=== PATIENT | female | born 1985 | race Caucasian/White ===

== ENCOUNTER 2016-11-01 10:51 | Emergency (ER) | payer OTHER ==
[2016-11-01 10:59] VITALS: BP 162/88; PULSE 98; TEMP 97.9; BMI 44.9
--- NOTE | 2016-11-01 11:58 | PDOC ---
History of Present Illness - General History Source: Patient Exam Limitations: No Limitations - History of Present Illness Initial Comments: 11/01/16 12:18 The patient is a 31 year old female with no significant past medical history who presents to the emergency department with an abscess on the right side of her neck for the last week. The patient states the she has had a bump on her neck for at least a year, however within the last week she noticed increasing size and pain in her neck. She states that the abscess blew up within the last week. She reports sharp pain with movements of her neck and when lying down. The patient denies any radiating pain. The abscess is painful to touch. She went to urgent care a few days ago and was sent for an ultrasound. The ultrasound was inconclusive and required a CT scan for further evaluation. The patient denies any recent dental work. The patient denies any difficulty swallowing or SOB. She denies any recent illness, fevers, or chills. <Marilin Hunt - Last Filed: 11/01/16 12:18> <Chepe Benitez - Last Filed: 11/01/16 15:40> - General Chief Complaint: Abscess Boil Stated Complaint: ABSCESS/ RT SIDE OF NECK Time Seen by Provider: 11/01/16 11:36 Past History <Marilin Hunt - Last Filed: 11/01/16 12:18> - Past Medical History Psychiatric Problems: Yes (ANXIETY) Suicide Attempt (Hx): No Other medical history: gullian barre - Surgical History Cholecystectomy: Yes - Reproductive History (#): 0 Para: 0 - Immunization History Td Vaccination: Yes Immunization Up to Date: Yes - Psycho/Social/Smoking Cessation Hx Anxiety: Yes Suicidal Ideation: No Smoking Status: No Smoking History: Never smoked Years of Tobacco Use: 0 Have you smoked in the past 12 months: No Number of Cigarettes Smoked Daily: 0 Cigars Per Day: 0 Information on smoking cessation initiated: No Hx Alcohol Use: No Drug/Substance Use Hx: No Substance Use Type: None <Chepe Benitez - Last Filed: 11/01/16 15:40> - Past Medical History Allergies/Adverse Reactions: Allergies Allergy/AdvReac Type Severity Reaction Status Date / Time clindamycin HCl Allergy Swelling Verified 11/01/16 10:52 [From Cleocin] clindamycin palmitate HCl Allergy Swelling Verified 11/01/16 10:52 [From Cleocin] clindamycin phosphate Allergy Swelling Verified 11/01/16 10:52 [From Cleocin] Home Medications: Ambulatory Orders Clonazepam [KlonoPIN] 1 mg PO BID PRN 05/22/15 Ibuprofen Oral Suspension [Motrin Oral Suspension -] 600 mg PO Q6H PRN #1 bottle 05/22/15 Ondansetron [Ondansetron Odt] 8 mg PO TID #20 tab.rapdis 11/01/16 Oxycodone HCl/Acetaminophen [Percocet 5-325 mg Tablet] 1 - 2 tab PO Q6H #20 tab MDD 4 11/01/16 Sulfamethoxazole/Trimethoprim [Bactrim Ds Tablet] 1 each PO BID #20 tablet 11/01 Review of Systems - Review of Systems Able to Perform ROS?: Yes Comments:: 11/01/16 12:18 GENERAL/CONSTITUTIONAL: No fever or chills. No weakness. HEAD, EYES, EARS, NOSE AND THROAT: No change in vision. No ear pain or discharge. No sore throat. CARDIOVASCULAR: No chest pain or shortness of breath. RESPIRATORY: No cough, wheezing, or hemoptysis. GASTROINTESTINAL: No nausea, vomiting, diarrhea or constipation. GENITOURINARY: No dysuria, frequency, or change in urination. MUSCULOSKELETAL: No joint or muscle swelling or pain. No neck or back pain. SKIN: +Abscess right neck. No rash NEUROLOGIC: No headache, vertigo, loss of consciousness, or change in strength/ sensation. ENDOCRINE: No increased thirst. No abnormal weight change. HEMATOLOGIC/LYMPHATIC: No anemia, easy bleeding, or history of blood clots. ALLERGIC/IMMUNOLOGIC: No hives or skin allergy. <Marilin Hunt - Last Filed: 11/01/16 12:18> *Physical Exam - Vital Signs Last Vital Signs Temp Pulse Resp BP Pulse Ox 97.9 F 98 H 20 162/88 100 11/01/16 10:54 11/01/16 10:54 11/01/16 10:54 11/01/16 10:54 11/01/16 10:54 - Physical Exam Comments: 11/01/16 12:19 GENERAL: Awake, alert, and fully oriented, in no acute distress HEAD: No signs of trauma EYES: PERRLA, EOMI, sclera anicteric, conjunctiva clear ENT: Auricles normal inspection, hearing grossly normal, nares patent, oropharynx clear without exudates. Moist mucosa NECK: +2cm raised area of tenderness with 1cm circular area of erythema around the center. Normal ROM, supple. LUNGS: Breath sounds equal, clear to auscultation bilaterally. No wheezes, and no crackles HEART: Regular rate and rhythm, normal S1 and S2, no murmurs, rubs or gallops ABDOMEN: +Obese. Soft, nontender, normoactive bowel sounds. No guarding, no rebound. No masses EXTREMITIES: Normal range of motion, no edema. No clubbing or cyanosis. No cords, erythema, or tenderness NEUROLOGICAL: Cranial nerves II through XII grossly intact. Normal speech, normal gait SKIN: Warm, Dry, normal turgor, no rashes or lesions noted. <Marilin Hunt - Last Filed: 11/01/16 12:18> - Vital Signs Last Vital Signs Temp Pulse Resp BP Pulse Ox 97.9 F 98 H 20 162/88 100 11/01/16 10:54 11/01/16 10:54 11/01/16 10:54 11/01/16 10:54 11/01/16 10:54 <Chepe Benitez - Last Filed: 11/01/16 15:40> ED Treatment Course - LABORATORY CBC & Chemistry Diagram: 11/01/16 12:30 11/01/16 12:30 <Chepe Benitez - Last Filed: 11/01/16 15:40> *DC/Admit/Observation/Transfer - Attestations Scribe Attestion: 11/01/16 12:03 Documentation prepared by Marilin Hunt, acting as vice president medical affairs for Chepe Benitez MD. <Marilin Hunt - Last Filed: 11/01/16 12:18> - Discharge Dispostion Admit: No - Attestations Physician Attestion: 11/01/16 11:58 I, Dr. Chepe Benitez, attest that this document has been prepared under my direction and personally reviewed by me in its entirety. I further attest, that it accurately reflects all work, treatment, procedures and medical decision -making performed by me. <Chepe Benitez - Last Filed: 11/01/16 15:40> Diagnosis at time of Disposition: Sebaceous cyst - Prescriptions Prescriptions: Sulfamethoxazole/Trimethoprim [Bactrim Ds Tablet] 1 each PO BID #20 tablet Oxycodone HCl/Acetaminophen [Percocet 5-325 mg Tablet] 1 - 2 tab PO Q6H #20 tab MDD 4 Ondansetron [Ondansetron Odt] 8 mg PO TID #20 tab.rapdis - Referrals Referrals: Ector Eng MD [Primary Care Provider] - Jesu Martines MD [Staff Physician] - Finesse Mars MD [Staff Physician] - - Patient Instructions Printed Discharge Instructions: DI for Epidermal Cyst Additional Instructions: [place]- You should see a surgeon, plastics or a breakfast and room attendant. Call the phone number on the back of your insurance card to see who will see you..... otherwise go to one of the large teaching hospitals in the city and you can most probably be seen in the surgery clinic..... You could start with [facility] in the [place]. IN the meanwhile, we can give you pain medicine and some antibiotics. Be well- Dr. Chepe Benitez
[2016-11-01 12:45] LABS: EOSINOPHIL 2.7 % (0-4.5); MCH 27.8 pg (25.7-33.7); MCHC 33.2 g/dl (32.0-36.0); MEAN CELL VOLUME 83.5 fl (80-96); MEAN PLT VOLUME 8.3 fl (7.5-11.1); NEUTROPHILS 67.8 % (42.8-82.8); PLATELET COUNT 336 K/MM3 (134-434); RDW 14.3 % (11.6-15.6); WHITE BLOOD COUNT 13.1 K/mm3 (4.0-10.0)
[2016-11-01 13:04] LABS: ALBUMIN 3.7 g/dl (3.4-5.0); ANION GAP 8 (8-16); BILIRUBIN,TOTAL 0.2 mg/dL (0.2-1.0); CALCIUM 9.1 mg/dL (8.5-10.1); CO2 26 mmol/L (21-32); CREATININE 0.7 mg/dL (0.55-1.02); GLUCOSE,RANDOM 93 mg/dL (74-106); SGOT/AST 19 U/L (15-37); SGPT/ALT 41 U/L (12-78); TOT PROT 7.2 g/dl (6.4-8.2)
[2016-11-01 13:05] LABS: ALK PHOS 87 U/L (45-117)
[2016-11-01] MEDS ORDERED: ACETAMINOPHEN 500 MG TABLET (FP) PO ONE (14:51)
[2016-11-01] MEDS ORDERED: IBUPROFEN 400 MG TABLET (FP) PO ONE ×2 (14:52→14:57)
[2016-11-01] MEDS ORDERED: ACETAMINOPHEN 325 MG TABLET (FP) ONE ×2 (14:56→14:57)
[2016-11-01] MEDS ORDERED: IBUPROFEN 100 MG/5 ML UNIT DOSE CUPS ONE (15:00)
[2016-11-01] MEDS ORDERED: ACETAMINOPHEN 650 MG/20.3 ML ORAL SOLUTION (CUPS) ONE (15:00)
== END 2016-11-01 16:19 | disposition home or self-care (01) ==
LOC: JER 10:51
DX: L72.3 Sebaceous cyst (principal)
CPT/HCPCS: 36415; 70491-TC; 80053; 84703; 85025; 99281-25

== ENCOUNTER 2016-11-03 23:01 | Inpatient (IN) | payer OTHER ==
[2016-11-03 23:16] VITALS: BMI 40.2
[2016-11-04] MEDS ORDERED: VANCOMYCIN 1,000 MG in DEXTROSE 5%-WATER - 250 ML IVPB ONE (01:44)
[2016-11-04] MEDS ORDERED: VANCOMYCIN 1 GRAM (PRE-DOCKED) 250 ML IVPB ONE (02:09)
[2016-11-04 02:29] LABS: BASOPHIL 0.4 % (0-2.0); EOSINOPHIL 2.1 % (0-4.5); MCH 27.6 pg (25.7-33.7); MCHC 33.2 g/dl (32.0-36.0); MEAN PLT VOLUME 8.3 fl (7.5-11.1); NEUTROPHILS 68.4 % (42.8-82.8); PLATELET COUNT 376 K/MM3 (134-434); RDW 14.5 % (11.6-15.6)
[2016-11-04] MEDS ORDERED: IBUPROFEN 100 MG/5 ML UNIT DOSE CUPS PO ONE (02:58)
[2016-11-04 03:00] LABS: ALBUMIN 3.6 g/dl (3.4-5.0); ALK PHOS 89 U/L (45-117); ANION GAP 11 (8-16); BILIRUBIN,TOTAL 0.4 mg/dL (0.2-1.0); CALCIUM 9.3 mg/dL (8.5-10.1); CO2 24 mmol/L (21-32); CREATININE 0.8 mg/dL (0.55-1.02); GLUCOSE,RANDOM 90 mg/dL (74-106); SGPT/ALT 80 U/L (12-78); TOT PROT 7.3 g/dl (6.4-8.2)
[2016-11-04 03:04] LABS: SGOT/AST 65 U/L (15-37)
--- NOTE | 2016-11-04 03:40 | PDOC ---
History of Present Illness - General Chief Complaint: Wound Infection Stated Complaint: ABSCESS BOIL Time Seen by Provider: 11/04/16 00:48 - History of Present Illness Initial Comments: 11/04/16 03:36 CHIEF COMPLAINT: abscess to neck HISTORY OF PRESENT ILLNESS: 31 yo F with no significant PMH returns to ED with worsening abscess to R neck. Patient was seen two days in this ER and was diagnosed with a sebaceous cyst seen on soft tissue neck CT. Patient was prescribed Bactrim and has had 4 doses, but the abscess has increased in size and worsened in pain. Patient now complains of nausea, chills and states her temperature is "running high for me" as she normally has a temp of around 97F but today it was above 99F. No recent travel or sick contacts. PAST MEDICAL HISTORY: Denies past medical history FAMILY HISTORY: Denies SOCIAL HISTORY: Denies tobacco, alcohol, illicit drug use. SURGICAL HISTORY: Denies ALLERGIES: No known drug allergies REVIEW OF SYSTEMS General/Constitutional: Chills, "I have a temperature that is high for me". Denies weakness, weight change. HEENT: Denies change in vision. Denies ear pain or discharge. Denies sore throat. Cardiovascular: Denies chest pain or shortness of breath. Respiratory: Denies cough, wheezing, or hemoptysis. Gastrointestinal: Nausea today, Denies vomiting, diarrhea or constipation. Denies rectal bleeding. Genitourinary: Denies dysuria, frequency, or change in urination. Musculoskeletal: Denies joint or muscle swelling or pain. Denies neck or back pain. Skin: Painful worsening abscess to R neck. Denies rash or easy bruising. Neurologic: Denies headache, vertigo, loss of consciousness, or loss of sensation. Psychiatric: Denies depression or anxiety. Endocrine: Denies increased thirst. Denies abnormal weight change. Hematologic/Lymphatic: Denies anemia, easy bleeding, or history of blood clots. Allergic/Immunologic: Denies hives or skin allergy. Denies latex allergy. PHYSICAL EXAM General Appearance: Tachycardic to 107. Well-appearing, appropriately dressed. No apparent distress. HEENT: EOMI, PERRLA, normal ENT inspection, normal voice, TMs normal, pharynx normal. No conjunctival pallor. No photophobia, scleral icterus. Neck: 2 cm x 3 cm erythematous, tender abscess to R neck. Supple. Trachea midline. No tenderness, rigidity, carotid bruit, stridor, lymphadenopathy, or thyromegaly. Respiratory/Chest: Lungs CTAB. Cardiovascular: RRR. S1, S2. Gastrointestinal/Abdominal: Normal bowel sounds. Abdomen soft, non-distended. Lymphatic: No adenopathy, tenderness. Musculoskeletal/Extremities: Normal inspection. FROM of all extremities, normal capillary refill. No tenderness to extremities, pedal edema, swelling, erythema or deformity. Integumentary: see neck . Otherwise appropriate color, dry, warm. 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 Fully oriented, alert. Appropriate mood/affect. Motor strength 5/5. No appreciable EOM palsy, facial droop or sensory deficit. 11/04/16 03:47 Past History - Past Medical History Allergies/Adverse Reactions: Allergies Allergy/AdvReac Type Severity Reaction Status Date / Time clindamycin HCl Allergy Swelling Verified 11/03/16 23:12 [From Cleocin] clindamycin palmitate HCl Allergy Swelling Verified 11/03/16 23:12 [From Cleocin] clindamycin phosphate Allergy Swelling Verified 11/03/16 23:12 [From Cleocin] Home Medications: Ambulatory Orders Clonazepam [KlonoPIN] 1 mg PO BID PRN 05/22/15 Oxycodone HCl/Acetaminophen [Percocet 5-325 mg Tablet] 1 - 2 tab PO Q6H #20 tab MDD 4 11/01/16 Sulfamethoxazole/Trimethoprim [Bactrim Ds Tablet] 1 each PO BID #20 tablet 11/01 Psychiatric Problems: Yes (ANXIETY) Suicide Attempt (Hx): No - Surgical History Cholecystectomy: Yes - Reproductive History (#): 0 Para: 0 - Immunization History Td Vaccination: Yes Immunization Up to Date: Yes - Psycho/Social/Smoking Cessation Hx Anxiety: Yes Suicidal Ideation: No Smoking Status: No Smoking History: Never smoked Years of Tobacco Use: 0 Have you smoked in the past 12 months: No Number of Cigarettes Smoked Daily: 0 Cigars Per Day: 0 Hx Alcohol Use: No Drug/Substance Use Hx: No Substance Use Type: None *Physical Exam - Vital Signs Last Vital Signs Temp Pulse Resp BP Pulse Ox 99.2 F 107 H 22 142/89 98 11/03/16 23:14 11/03/16 23:14 11/03/16 23:14 11/03/16 23:14 11/03/16 23:14 ED Treatment Course - LABORATORY CBC & Chemistry Diagram: 11/04/16 02:24 11/04/16 02:24 - ADDITIONAL ORDERS Additional order review: Laboratory Results 11/04/16 02:24 Sodium 139 Potassium 4.8 Chloride 104 Carbon Dioxide 24 Anion Gap 11 BUN 12 Creatinine 0.8 Creat Clearance w eGFR > 60 Random Glucose 90 Calcium 9.3 Total Bilirubin 0.4 D AST 65 H D ALT 80 H D Alkaline Phosphatase 89 Total Protein 7.3 Albumin 3.6 11/04/16 02:24 RBC 4.68 MCV 83.0 MCHC 33.2 RDW 14.5 MPV 8.3 Neutrophils % 68.4 Lymphocytes % 23.7 Monocytes % 5.4 Eosinophils % 2.1 Basophils % 0.4 - RADIOLOGY Radiology Studies Ordered: Category Date Time Status CHEST PA & LAT [RAD] Stat Radiology 11/04/16 01:42 Ordered Medical Decision Making - Medical Decision Making 11/04/16 03:47 31 yo F with no significant PMH returns to ED with worsening abscess to R neck. -CBC, CMP -1g Vancomycin IVPB -600 ibuprofen for pain Will admit for IV antibiotics and surgical consult. Discussed case with covering MD Veterinary Technologist for patient's PMD Albertina, who accepts patient to med/surg floor. 11/04/16 04:50 *DC/Admit/Observation/Transfer Diagnosis at time of Disposition: Abscess - Discharge Dispostion Admit: Yes - Referrals
[2016-11-04] MEDS ORDERED: clonazePAM 0.5 MG TABLET PO PRN (03:43)
[2016-11-04] MEDS ORDERED: DOCUSATE SODIUM 100 MG CAPSULE (FP) PO PRN (03:44)
[2016-11-04] MEDS ORDERED: ACETAMINOPHEN 325 MG TABLET (FP) PO PRN (03:44)
[2016-11-04] MEDS ORDERED: IBUPROFEN 600 MG TABLET (FP) PO ONE (03:53)
[2016-11-04] MEDS ORDERED: IBUPROFEN 100 MG/5 ML UNIT DOSE CUPS ONE (03:56)
[2016-11-04 08:23] LABS: INR 1.22 (0.82-1.09); PROTHROMBIN TIME (PATIENT) 13.5 SEC (9.98-11.88)
[2016-11-04] MEDS ORDERED: oxyCODONE HCL 5 MG TABLET ONE (09:36)
[2016-11-04] MEDS: oxyCODONE HCL 5 MG TABLET PO PRN ×3 (09:42→21:26)
--- NOTE | 2016-11-04 11:43 | CONSULT ---
- Consultation REQUESTING PROVIDER: General Surgery-Dr. Martines CONSULT REQUEST: We have been asked to surgically evaluate this patient for right neck mass. PCP:Robbi James MD HISTORY OF PRESENT ILLNESS:The patient is a 31 yo female who presents to the ER for evaluation of a right neck mass which became enlarged this week. SHe states that she first noted the mass approximately 10 years ago and had it evaluated by an ENT doctor. She never was told exactly what it was. She did notice a small black dot in the center of it and denies any discharge from the mass. Earlier this week the area acutely became inflammed and tender. She went to an urgent care center and was given bactrim and told that she needed a neck CT with contrast. In the meantime, the skin became red and it was more swollen and she is currently being admitted to the hospital and has received IV abx. PMHx: Guillain-barre syndrome, asthma PSHx: tonsillectomy, cholecystectomy Home Medications Medication Instructions Recorded Clonazepam [KlonoPIN] 1 mg PO BID PRN 05/22/15 Oxycodone HCl/Acetaminophen 1 - 2 tab PO Q6H #20 tab MDD 4 11/01/16 [Percocet 5-325 mg Tablet] Sulfamethoxazole/Trimethoprim 1 each PO BID #20 tablet 11/01/16 [Bactrim Ds Tablet] Allergies Allergy/AdvReac Type Severity Reaction Status Date / Time clindamycin HCl Allergy Swelling Verified 11/03/16 23:12 [From Cleocin] clindamycin palmitate HCl Allergy Swelling Verified 11/03/16 23:12 [From Cleocin] clindamycin phosphate Allergy Swelling Verified 11/03/16 23:12 [From Cleocin] REVIEW OF SYSTEMS: CONSTITUTIONAL: Present: fever, chills, states her average temp run on the lower side. CARDIOVASCULAR: Absent: chest pain, palpitations, irregular heart rate RESPIRATORY: Absent: cough, shortness of breath, asthma symptoms are more seasonal. GASTROINTESTINAL: Absent: abdominal pain, abdominal distension GENITOURINARY: Absent: dysuria, hematuria MUSCULOSKELETAL: Absent: myalgia, arthralgia, joint swelling SKIN: Absent:redness to neck HEMATOLOGIC/IMMUNOLOGIC: Absent: easy bleeding, easy bruising, lymphadenopathy NEUROLOGIC: Absent: headache, ? seizure activity and was workup by neurology and was told wasn't neurologically based. Takes Klonopin on a daily basis for anxiety. PSYCHIATRIC: Absent: anxiety. PHYSICAL EXAM: GENERAL: Awake, alert, and fully oriented, in no acute distress. HEAD: Normal with no signs of trauma. EYES: PERRL, sclera anicteric, conjunctiva clear. NECK: Normal ROM, supple, right 2 x3 erythematous, fluctuant mass to right lateral/posterior neck. No punctuated noted. LUNGS: Clear to auscultation bilat anteriorly. No wheezes, and no crackles. No accessory muscle use. HEART: Regular rate and rhythm. No murmurs ABDOMEN: Soft, nontender, not distended, normoactive bowel sounds. MUSCULOSKELETAL: Normal ROM at all joints. No bony deformities or tenderness. No CVA tenderness. UPPER EXTREMITIES: 2+ pulses, warm, well-perfused. No cyanosis. Cap refill <2 seconds. No peripheral edema. LOWER EXTREMITIES: 2+ pulses, warm, well-perfused. No calf tenderness. No peripheral edema. NEUROLOGICAL: Normal speech, gait not observed. PSYCH: Cooperative. Good eye contact. Appropriate mood and affect. SKIN: Warm, dry, normal turgor, no rashes or lesions noted. Vital Signs Temperature 98 F 11/04/16 10:30 Pulse Rate 78 11/04/16 10:30 Respiratory Rate 18 11/04/16 10:30 Blood Pressure 149/83 11/04/16 10:30 O2 Sat by Pulse Oximetry (%) 97 11/04/16 04:09 Lab Results WBC 13.0 K/mm3 (4.0-10.0) H 11/04/16 02:24 RBC 4.68 M/mm3 (3.60-5.2) 11/04/16 02:24 Hgb 12.9 GM/dL (10.7-15.3) 11/04/16 02:24 Hct 38.9 % (32.4-45.2) 11/04/16 02:24 MCV 83.0 fl (80-96) 11/04/16 02:24 MCHC 33.2 g/dl (32.0-36.0) 11/04/16 02:24 RDW 14.5 % (11.6-15.6) 11/04/16 02:24 Plt Count 376 K/MM3 (134-434) 11/04/16 02:24 Sodium 139 mmol/L (136-145) 11/04/16 02:24 Potassium 4.8 mmol/L (3.5-5.1) 11/04/16 02:24 Chloride 104 mmol/L (98-107) 11/04/16 02:24 Carbon Dioxide 24 mmol/L (21-32) 11/04/16 02:24 Anion Gap 11 (8-16) 11/04/16 02:24 BUN 12 mg/dL (7-18) 11/04/16 02:24 Creatinine 0.8 mg/dL (0.55-1.02) 11/04/16 02:24 Random Glucose 90 mg/dL (74-106) 11/04/16 02:24 Calcium 9.3 mg/dL (8.5-10.1) 11/04/16 02:24 INR 1.22 (0.82-1.09) H 11/04/16 07:29 Problem List - Problems (1) Abscess Assessment/Plan: Right lateral/posterior neck neck mass probably infected sebaceous cyst. The patient was seen and examined with Dr. Martines and plain is for Incision and drainage tomorrow in the OR. Once the acute infection/inflammation resolves after the I&D she will require a definitive removal of the cyst capsule at a later date. Npo after midnight Cont IV abx Please medically clear/optimize for tomorrows procedure. Code(s): L02.91 - CUTANEOUS ABSCESS, UNSPECIFIED Visit type - Case Type Case Type: ED Admission - Emergency Emergency Visit: Yes ED Registration Date: 11/04/16 Care time: The patient presented to the Emergency Department on the above date and was hospitalized for further evaluation of their emergent condition. - New patient This patient is new to me today: Yes Date on this admission: 11/04/16 - Critical Care Critical Care patient: No
--- NOTE | 2016-11-04 11:43 | HP ---
Admitting History and Physical - Primary Care Physician PCP: Ector Eng - Admission Chief Complaint: NECK ABSCESS History Source: Patient, Family Member, Medical Record Limitations to Obtaining History: No Limitations - Past Medical History ...LMP: 10/23/16 - Smoking History Smoking history: Never smoked Have you smoked in the past 12 months: No Aproximately how many cigarettes per day: 0 - Alcohol/Substance Use Hx Alcohol Use: No Home Medications - Allergies Allergies/Adverse Reactions: Allergies Allergy/AdvReac Type Severity Reaction Status Date / Time clindamycin HCl Allergy Swelling Verified 11/03/16 23:12 [From Cleocin] clindamycin palmitate HCl Allergy Swelling Verified 11/03/16 23:12 [From Cleocin] clindamycin phosphate Allergy Swelling Verified 11/03/16 23:12 [From Cleocin] - Home Medications Home Medications: Ambulatory Orders Clonazepam [KlonoPIN] 1 mg PO BID PRN 05/22/15 Oxycodone HCl/Acetaminophen [Percocet 5-325 mg Tablet] 1 - 2 tab PO Q6H #20 tab MDD 4 11/01/16 Sulfamethoxazole/Trimethoprim [Bactrim Ds Tablet] 1 each PO BID #20 tablet 11/01 Review of Systems - Review of Systems Constitutional: reports: Chills, Fever Cardiovascular: denies: Chest Pain Respiratory: denies: SOB Gastrointestinal: denies: Abdominal Pain Physical Examination Vital Signs: Vital Signs Temperature 98 F 11/04/16 10:30 Pulse Rate 78 11/04/16 10:30 Respiratory Rate 18 11/04/16 10:30 Blood Pressure 149/83 11/04/16 10:30 O2 Sat by Pulse Oximetry (%) 97 11/04/16 04:09 Constitutional: Yes: Calm Cardiovascular: Yes: Regular Rate and Rhythm, S1, S2 Respiratory: Yes: CTA Bilaterally Gastrointestinal: Yes: Normal Bowel Sounds, Soft Edema: No Wound/Incision: Yes: Other (R NECK PROMINENCE & TENDER) Imaging - Results Chest X-ray: Report Reviewed Problem List - Problems (1) Abscess Code(s): L02.91 - CUTANEOUS ABSCESS, UNSPECIFIED (2) Anxiety Code(s): F41.9 - ANXIETY DISORDER, UNSPECIFIED Assessment/Plan HISTORY OF PRESENT ILLNESS: 31 yo F with no significant PMH returns to ED with worsening abscess to R neck. Patient was seen two days in this ER and was diagnosed with a sebaceous cyst seen on soft tissue neck CT. Patient was prescribed Bactrim and has had 4 doses, but the abscess has increased in size and worsened in pain. Patient now complains of nausea, chills and states her temperature is "running high for me" as she normally has a temp of around 97F but today it was above 99F. (1) Abscess Code(s): L02.91 - CUTANEOUS ABSCESS, UNSPECIFIED APPRECIATE GEN SURG CONSULT PLANNED I&D IV ABx (2) Anxiety Code(s): F41.9 - ANXIETY DISORDER, UNSPECIFIED ON [employer] ACCOUNT EXECUTIVE FM
--- NOTE | 2016-11-04 13:17 | PN ---
Progress Note (short form) - Note Progress Note: ID consult dictated imp/reccd 31 year old female with sudden onset of swelling right side of neck on Saturday. had a small cyst in that area in the past, the area got larger and she came to ED on Thrusday and was given bactrim- she has has low grade fever and continued neck discomfort while on bactrim seen by surgery and scheduled for drainage in am infected sebaceous cyst ly/franky
[2016-11-04] MEDS: VANCOMYCIN 1,250 MG in DEXTROSE 5%-WATER - 250 ML IVPB SCH (14:03)
[2016-11-04] MEDS: AMPICILLIN NA/SULBACTAM NA 100 ML IVPB SCH ×2 (16:08→21:23)
--- NOTE | 2016-11-04 21:19 | CONS ---
DATE OF CONSULTATION: 11/04/2016 REQUESTED BY: Robbi James MD This is a 31-year-old woman who presents to the emergency room for evaluation of a right neck mass. She had a very very small nodule, she says, in her right neck for about the last 10 years, which she has really not pursued. On last Saturday, the area became acutely swollen, it worsened over the course of the last several days. She went to an [facility], where she had an ultrasound and was told she needed a CAT scan. They could not do the CAT scan. She came to the emergency room here, was given Bactrim and discharged with Percocet. At home, she continued to have what she felt like low-grade fever. She overall felt unwell and she felt the area was becoming more swollen and she came to the emergency room. She received vancomycin overnight and reports feeling markedly improved this morning. Past medical history is notable for Guillain-[place] syndrome, asthma, and anxiety. Surgical history is notable for tonsillectomy and cholecystectomy. Her home medications are Klonopin and Percocet and the Bactrim which has been started. She was crushing the Bactrim and taking it. She is allergic to CLINDAMYCIN, which she states gave her an itchy throat and burning. Family history is noncontributory. SOCIAL HISTORY: She lives at home. She is currently unemployed. She has a pet dog. She has no cats, nothing has scratched her. PHYSICAL EXAMINATION: General: She is awake and alert, in no acute distress. She is moderately obese young lady. Reports that she is feeling much better than when she came in. Vital Signs: T-max was 99.2 on admission, currently 98. Pulse is 78. Blood pressure 149/83. Respiratory rate is 18. Stated weight is 219. HEENT: She is normocephalic. Her eyes are anicteric. Neck: Supple. She has a 2 x 3 erythematous fluctuant mass of her right lateral neck. She has no other adenopathy. Lungs: Clear to auscultation. Heart: Regular rate and rhythm. Abdomen: Soft, nontender. Extremities: Without edema. She has no rash. Her white count is 13, hemoglobin 12.9, platelets 376, INR is 1.2. BUN 12, creatinine 0.8. Her urine test is negative. She has been seen by Surgery. Plan is to take her to the OR tomorrow to drain the area. In summary, this is a 31-year-old woman with an infected sebaceous cyst, who was seen by Surgery and is scheduled for drainage in the a.m. Would treat her with vancomycin and Unasyn, pending surgical drainage. Further recommendations to follow based on clinical course. Tremayne GARCIA/[id number]
--- NOTE | 2016-11-05 00:41 | EKG ---
Test Reason : Blood Pressure : / mmHG Vent. Rate : 084 BPM Atrial Rate : 084 BPM P-R Int : 146 ms QRS Dur : 088 ms QT Int : 374 ms P-R-T Axes : 032 022 020 degrees QTc Int : 441 ms NORMAL SINUS RHYTHM NONSPECIFIC T WAVE ABNORMALITY ABNORMAL ECG NO PREVIOUS ECGS AVAILABLE Confirmed by AUDIE CALDWELL MD ([id number]) on 11/05/2016 12:41:20 AM Referred By: Confirmed By:AUDIE CALDWELL MD
[2016-11-05] MEDS: VANCOMYCIN 1,250 MG in DEXTROSE 5%-WATER - 250 ML IVPB SCH ×2 (01:37→13:32)
[2016-11-05] MEDS: AMPICILLIN NA/SULBACTAM NA 100 ML IVPB SCH ×4 (03:45→21:07)
[2016-11-05 08:10] LABS: BASOPHIL 0.6 % (0-2.0); EOSINOPHIL 3.6 % (0-4.5); MCHC 33.3 g/dl (32.0-36.0); MEAN PLT VOLUME 8.4 fl (7.5-11.1); NEUTROPHILS 63.7 % (42.8-82.8); PLATELET COUNT 316 K/MM3 (134-434); RDW 14.6 % (11.6-15.6); WHITE BLOOD COUNT 11.3 K/mm3 (4.0-10.0)
[2016-11-05] MEDS ORDERED: BUPIVACAINE HCL/PF 0.5% (5MG/ML) 10 ML VIAL ONE (08:28)
[2016-11-05] MEDS ORDERED: LIDOCAINE HCL 1%, 10 MG/ML (20ML VIAL) ONE (08:28)
[2016-11-05] MEDS ORDERED: MIDAZOLAM HCL 2 MG/2 ML SINGLE DOSE VIAL ONE (08:34)
[2016-11-05] MEDS ORDERED: PROPOFOL 20 ML ONE (08:36)
[2016-11-05] MEDS ORDERED: IBUPROFEN 100 MG/5 ML UNIT DOSE CUPS PO PRN (08:49)
--- NOTE | 2016-11-05 08:49 | PN ---
Progress Note, Physician Chief Complaint: IN OR - Current Medication List Current Medications: Active Medications Acetaminophen (Tylenol -) 650 mg PO Q6H PRN PRN Reason: PAIN OR FEVER Last Admin: 11/04/16 16:06 Dose: 650 mg Clonazepam (Klonopin -) 1 mg PO Q12H PRN PRN Reason: ANXIETY Docusate Sodium (Colace -) 100 mg PO Q12H PRN PRN Reason: CONSTIPATION Vancomycin HCl 1,250 mg/ (Dextrose) 250 mls @ 166.667 mls/hr IVPB Q12H LUIS ANGEL PRN Reason: Protocol Last Admin: 11/05/16 01:37 Dose: 166.667 mls/hr Ampicillin Sodium/Sulbactam Sodium (Unasyn 1.5 Gm (Pre-Docked)) 100 mls @ 200 mls/hr IVPB Q6H-IV LUIS ANGEL Last Admin: 11/05/16 03:45 Dose: 200 mls/hr Oxycodone HCl (Roxicodone -) 10 mg PO Q4H PRN PRN Reason: PAIN Last Admin: 11/04/16 21:26 Dose: 10 mg - Objective Vital Signs: Vital Signs Temperature 98.3 F 11/05/16 06:00 Pulse Rate 90 11/05/16 06:00 Respiratory Rate 18 11/05/16 06:00 Blood Pressure 138/77 11/05/16 06:00 O2 Sat by Pulse Oximetry (%) 100 11/04/16 21:00 Cardiovascular: Yes: WNL Respiratory: Yes: WNL Gastrointestinal: Yes: WNL Edema: No Labs: CBC, BMP 11/05/16 06:30 INR, PTT INR 1.22 (0.82-1.09) H 11/04/16 07:29 Problem List - Problems (1) Abscess Code(s): L02.91 - CUTANEOUS ABSCESS, UNSPECIFIED (2) Anxiety Code(s): F41.9 - ANXIETY DISORDER, UNSPECIFIED Assessment/Plan HISTORY OF PRESENT ILLNESS: 31 yo F with no significant PMH returns to ED with worsening abscess to R neck. Patient was seen two days in this ER and was diagnosed with a sebaceous cyst seen on soft tissue neck CT. Patient was prescribed Bactrim and has had 4 doses, but the abscess has increased in size and worsened in pain. Patient now complains of nausea, chills and states her temperature is "running high for me" as she normally has a temp of around 97F but today it was above 99F. 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
[2016-11-05] MEDS ORDERED: BUPIVACAINE HCL/PF 0.5% (5MG/ML) 10 ML VIAL IJ ONE (08:56)
[2016-11-05] MEDS ORDERED: LIDOCAINE HCL 1%, 10 MG/ML (20ML VIAL) IJ ONE (08:56)
[2016-11-05 08:58] LABS: ALBUMIN 3.1 g/dl (3.4-5.0); ANION GAP 11 (8-16); CALCIUM 8.2 mg/dL (8.5-10.1); CO2 26 mmol/L (21-32); GLUCOSE,RANDOM 109 mg/dL (74-106)
[2016-11-05 09:02] LABS: ALK PHOS 76 U/L (45-117); BILIRUBIN,TOTAL 0.3 mg/dL (0.2-1.0); CREATININE 0.8 mg/dL (0.55-1.02); SGOT/AST 34 U/L (15-37); SGPT/ALT 69 U/L (12-78); TOT PROT 6.3 g/dl (6.4-8.2)
--- NOTE | 2016-11-05 09:15 | OP ---
Operative Note - Note: Operative Date: 11/05/16 Pre-Operative Diagnosis: right neck abscess Operation: I and D right neck abscess Findings: Infected sebaceous cyst Post-Operative Diagnosis: Same as Pre-op Surgeon: Jesu Martines Anesthesia: MAC Specimens Removed: none Estimated Blood Loss (mls): 5 Drains & Tubes with Location: 1/2" packing
[2016-11-05] MEDS ORDERED: ONDANSETRON 4 MG/2 ML VIAL IVPUSH PRN (09:19)
[2016-11-05] MEDS ORDERED: DOCUSATE SODIUM 100 MG CAPSULE (FP) PO PRN (09:43)
[2016-11-05] MEDS ORDERED: clonazePAM 0.5 MG TABLET PO PRN (09:43)
[2016-11-05] MEDS ORDERED: ACETAMINOPHEN 325 MG TABLET (FP) PO PRN (09:43)
[2016-11-05] MEDS ORDERED: oxyCODONE HCL 5 MG TABLET PO PRN (09:43)
[2016-11-05] MEDS ORDERED: PANTOPRAZOLE 40 MG TABLET (FP) PO SCH (10:00)
--- NOTE | 2016-11-05 12:35 | PN ---
Progress Note (short form) - Note Progress Note: s/p drainage of infected sebaceous cyst cultures sent Vital Signs Period Temp Pulse Resp BP Sys/Delacruz Pulse Ox Last 24 Hr 97.3 F-98.7 F 71-90 16-18 106-151/60-84 97-100 dressing right neck cor-rrr lungs clear CBC, BMP 11/05/16 06:30 11/05/16 06:30 wound culture and gram stain pending a/p s/p drainage neck abscess (infected cyst) vanco/unasyn f/u cultures
[2016-11-05] MEDS ORDERED: AMPICILLIN NA/SULBACTAM NA 1.5 GM in SODIUM CHLORIDE 100 ML IVPB SCH (12:45)
[2016-11-05] MEDS: PANTOPRAZOLE 40 MG TABLET (FP) PO SCH ×2 (13:31→15:35)
[2016-11-05] MEDS: IBUPROFEN 100 MG/5 ML UNIT DOSE CUPS PO PRN (13:35)
[2016-11-05] MEDS ORDERED: ACETAMINOPHEN 650 MG/20.3 ML ORAL SOLUTION (CUPS) PO PRN (13:51)
[2016-11-06] MEDS: IBUPROFEN 100 MG/5 ML UNIT DOSE CUPS PO PRN ×2 (00:36→07:49)
[2016-11-06] MEDS: VANCOMYCIN 1,250 MG in DEXTROSE 5%-WATER - 250 ML IVPB SCH ×2 (00:36→12:01)
[2016-11-06] MEDS: AMPICILLIN NA/SULBACTAM NA 100 ML IVPB SCH ×2 (02:08→09:09)
[2016-11-06 05:49] VITALS: TEMP 97.8
[2016-11-06 07:33] LABS: BASOPHIL 0.8 % (0-2.0); MCHC 33.8 g/dl (32.0-36.0); MEAN CELL VOLUME 83.1 fl (80-96); MEAN PLT VOLUME 8.5 fl (7.5-11.1); NEUTROPHILS 64.5 % (42.8-82.8); PLATELET COUNT 306 K/MM3 (134-434); RDW 14.5 % (11.6-15.6)
[2016-11-06 07:48] LABS: ALBUMIN 3.3 g/dl (3.4-5.0); ANION GAP 8 (8-16); CALCIUM 8.6 mg/dL (8.5-10.1); CO2 27 mmol/L (21-32); CREATININE 0.7 mg/dL (0.55-1.02); GLUCOSE,RANDOM 90 mg/dL (74-106); SGOT/AST 46 U/L (15-37); SGPT/ALT 107 U/L (12-78)
[2016-11-06 07:50] LABS: ALK PHOS 85 U/L (45-117); BILIRUBIN,TOTAL 0.3 mg/dL (0.2-1.0); TOT PROT 6.4 g/dl (6.4-8.2)
--- NOTE | 2016-11-06 08:27 | PN ---
Progress Note (short form) - Note Progress Note: Surgery- Dr. Martines Patient seen and examined. Patient states she is doing well and pain is controlled. Last Vital Signs Temp Pulse Resp BP Pulse Ox 97.8 F 94 H 20 117/67 98 11/06/16 05:48 11/06/16 05:48 11/06/16 05:48 11/06/16 05:48 11/06/16 00:07 Exam: Gen: NAD, pleasant and cooperative Neck: Right-sided approx. 3 cm incision/wound clean, surrounded by some induration, no fluctuance, no erythema, no drainage. Packing removed and small amount of packing/wick replaced on rounds. Patient tolerated dressing change well with minimal pain. Problem List - Problems (1) Abscess Assessment/Plan: POD#1 s/p Incision and drainage of right neck abscess from infected sebaceous cyst Patient states she has Bactrim at home, may continue Follow-up wound culture Patient provided with wound care instructions (packing/dressing change daily, may shower) May take Tylenol/Ibuprofen for pain May be discharged home from surgical standpoint to follow-up with Dr. Martines in one week Code(s): L02.91 - CUTANEOUS ABSCESS, UNSPECIFIED
--- NOTE | 2016-11-06 08:33 | DS ---
Physical Examination Vital Signs: Vital Signs Temperature 97.8 F 11/06/16 05:48 Pulse Rate 94 H 11/06/16 05:48 Respiratory Rate 20 11/06/16 05:48 Blood Pressure 117/67 11/06/16 05:48 O2 Sat by Pulse Oximetry (%) 98 11/06/16 00:07 Constitutional: Yes: No Distress Eyes: Yes: WNL HENT: Yes: WNL Neck: Yes: Other (right sided wound s/p cyst removal clean) Cardiovascular: Yes: WNL Respiratory: Yes: WNL Gastrointestinal: Yes: WNL Renal/: Yes: WNL Musculoskeletal: Yes: WNL Extremities: Yes: WNL Edema: No Peripheral Pulses WNL: Yes Integumentary: Yes: WNL Wound/Incision: Yes: Dressing Dry and Intact Neurological: Yes: WNL ...Motor Strength: WNL Psychiatric: Yes: WNL Labs: CBC, BMP 11/06/16 06:00 11/06/16 06:00 Discharge Summary Reason For Visit: ABSCESS Current Active Problems Abscess (Acute) sebaceous cyst infected Procedures: Principal: CYST REMOVAL Other Procedures: GIVEN IV ABX AND PAIN MEDS FOR ACUTE SEBACOUS CYST ON RIGHT SIDE OF NECK. SURGICAL REMOVED AND TREATED, AWAIT CULTURES, WILL FOLLOW UP OUT PATIENT Hospital Course: ABOVE Condition: Improved - Instructions Diet, Activity, Other Instructions: Dr Martines Discharge Instructions Dear KARYNA AYALA, Post Operative Instructions Physical activity Resume your normal everyday activity as tolerated. You may walk unlimited george and climb stairs. Wound care Pack wound/change dressing once daily as instructed. You may shower and clean your wound with soap and water. Diet There are no dietary restrictions. Eat healthy, high-fiber foods. Drink 6 to 8 glasses of liquid each day. Pain management You may take Tylenol (acetaminophen) or Ibuprofen (for example, Motrin, Advil etc.) Call Dr. Martines for any of the following: Severe pain not relieved by medication Fever of 101 or higher Excessive bleeding or drainage on dressing Inability to urinate Call the office at [phone] for an appointment in seven days. Referrals: Ector Eng MD [Staff Physician] - Disposition: HOME - Home Medications Comprehensive Discharge Medication List: Ambulatory Orders Clonazepam [KlonoPIN] 1 mg PO BID PRN 05/22/15 Oxycodone HCl/Acetaminophen [Percocet 5-325 mg Tablet] 1 - 2 tab PO Q6H #20 tab MDD 4 11/01/16 Sulfamethoxazole/Trimethoprim [Bactrim Ds Tablet] 1 each PO BID #20 tablet 11/01
[2016-11-06] MEDS: PANTOPRAZOLE 40 MG TABLET (FP) PO SCH (09:11)
[2016-11-06 09:17] VITALS: BP 142/76; PULSE 86
--- NOTE | 2016-11-06 10:58 | OP ---
DATE OF OPERATION: 11/05/2016 PREOPERATIVE DIAGNOSIS: Infected sebaceous cyst of the right neck. POSTOPERATIVE DIAGNOSIS: Infected sebaceous cyst of the right neck. PROCEDURE: Incision and drainage of sebaceous cyst of the right neck. SURGEON: Jesu Martines MD ANESTHESIA: Local with IV sedation. OPERATIVE FINDINGS: There was an infected sebaceous cyst of the right neck. The rest of the findings were unremarkable. DESCRIPTION OF PROCEDURE: The patient was placed on the operating table in supine position, and the right neck was prepped with ChloraPrep and draped in sterile fashion. A time-out was taken, and the area infiltrated with 1% Xylocaine and 0.5% Marcaine in equal concentration. Incision was made with the scalpel, and purulent material was drained. This was sent for culture and sensitivity. As much as possible, the sebum and all the cysts were removed. The wound was then irrigated with sterile saline and packed with 0.5-inch plain packing. Dry sterile dressings were placed, the procedure terminated at this point, and the patient was transferred to the post-anesthesia care unit in stable condition, awake and alert. ESTIMATED BLOOD LOSS: 5 mL. REPLACEMENTS: Crystalloid. DRAINS: 0.5-inch packing. SPECIMENS: Culture and sensitivity to Microbiology. I, Jesu Martines, was physically present in the operating room from the time the patient was placed on the operating table until she was transferred to the post-anesthesia care unit in my accompaniment. MD BEE Esteves/[id number]
[2016-11-06] MEDS ORDERED: AMOX TR/POTASSIUM CLAVULANATE 250 MG/5 ML BOTTLE PO SCH (17:30)
== END 2016-11-06 15:07 | disposition home or self-care (01) | DRG 364 ==
LOC: JER 23:01 → JERBED 11-04 03:40 → UNDOADMIN 11-04 03:49 → JERBED 11-04 03:49 → J7W 11-04 15:35
PROVIDERS: ADMIT Family Medicine; ATTEND Family Medicine
PROC: 0J940ZZ Drainage of Right Neck Subcutaneous Tissue and Fascia, Open Approach (ICD-10-PCS; principal; 2016-11-05 10:00)
DX: L02.11 Cutaneous abscess of neck (principal); L72.3 Sebaceous cyst; F41.9 Anxiety disorder, unspecified
CPT/HCPCS: 36415; 71020-TC; 80053; 84703; 85025; 85610; 87070; 87076; 87205; 93005; 93010; 94760; 99283-25